=== PATIENT | female | born 1995 | race Caucasian/White ===

== ENCOUNTER 2020-08-20 05:51 | Inpatient (IN) | payer OTHER ==
[2020-08-20] VITALS (21 sets, daily range): BP systolic 81–140; BP diastolic 44–73
[~2020-08-20] VITALS: Ht 162.6 cm; Wt 90.7 kg
[2020-08-20] MEDS ORDERED: BUTORPHANOL 2 MG/ML INJ (J0595) IV ONE (08:00)
[2020-08-20] MEDS ORDERED: PROMETHAZINE INJ 25 MG/ML VIAL (J2550) IV PRN (08:00)
--- NOTE | 2020-08-20 08:08 | HPEPDOC ---
Obstetrical History & Physical General Date of Admission Aug 20, 2020 at 07:01 History of Present Illness 25yo G1at 40w4d presents with painful contraction. Reports active feal movement. No vaginal bleeding or LOF. Chief Complaint: Contractions, term Information Provided By: Patient Age: 25 : 1 Care Care: Good Care Dating Final EDC: Aug 16, 2020 Final EDC by: LMP, 1st trimester (US) EGA at Admission: 40 Past Medical History Past Obstetrical History : Past Obstetrical History: [employer] History: No pertinent history Past Medical History Surgical History: Dysart teeth Family History Significant Family History: No pertinent family hx Social History Marital Status: Family situation: Spouse/partner home Psychosocial History: No pertinent psych hx * Smoker: non-smoker Alcohol: Denies Drugs: denies Allergies Coded Allergies: No Known Allergies (Unverified , 08/20/20) Physical Examination Physical Examination GENERAL: Alert and oriented times three. BREAST: . ABDOMEN: Gravid and non-tender to touch. FETUS: Is vertex (VTX) by sterile vaginal examination (SVE), fetus is vertex (VTX) by Genaro. HEART RATE: Regular rate and rhythm. LUNGS: Clear to auscultation (CTA). . Vital Signs/I&O Vital Signs Date Time Temp Pulse Resp B/P (MAP) Pulse Ox O2 Delivery O2 Flow Rate FiO2 08/20/20 06:20 98.0 91 18 140/73 (95) Laboratory Data 24H LABS Laboratory Tests 2 08/20/20 07:07: Serology Scanned Report Hepatitis B Testing Pertinent Laboratoy Data Blood Type: O+ RBC Antibody Screen: Negative HIV: Negative Hepatitis B: Negative Rapid Plasma Reagin: Nonreactive Rubella: Immune Chlamydia/Gonorrhea: Negative Group B Streptococcus: Negative Anatomy Ultrasound Ultrasound Date: Apr 26, 2020 Placenta Location: Posterior Normal Anatomy: Yes Placenta Previa: No Vaginal Examination Dilation: 2cm Effacement: 80% Station: -2 Cervical Consistency: Soft Cervical Position: Anterior Presentation: Cephalic presentation Assessment Variability: Moderate Accelerations: Positive Decelerations: None Tocometer Contractions: Yes Frequency: regular, every 2-5 min. Assessment/Plan Assessment 25-year-old 1 at 40 weeks 4 days estimated gestational age in labor Reassuring status Plan Admit and orient. Permastone Applicator and consent. Diet: Regular. Group B Streptococcus (GBS) negative. Labs and intravenous (IV) per unit protocol. Counseled on Pitocin and induction of labor (IOL). Anticipate normal spontaneous delivery (). C-S as appropriate. DAVID GOODWIN MD. Aug 20, 2020 08:08
[2020-08-20 13:33] LABS: HEMATOCRIT 33.6 % (36.0-47.0); HEMOGLOBIN 11.6 g/dl (12.0-15.5); MEAN CORPUSCULAR HEMOGLOBIN 30.5 pg (27.0-33.0); MEAN CORPUSCULAR HGB CONC 34.5 g/dl (32.0-36.5); MEAN CORPUSCULAR VOLUME 88.4 fl (80.0-96.0); PLATELET COUNT, AUTOMATED 262 10^3/uL (150-450); WHITE BLOOD COUNT 10.6 10^3/uL (4.0-10.0)
[2020-08-20 14:05] LABS: ALT/SGPT 22 U/L (12-78); BILIRUBIN,TOTAL 0.3 MG/DL (0.2-1.0); CREATININE FOR GFR 0.71 MG/DL (0.55-1.30); GLOMERULAR FILTRATION RATE > 60.0 (>60); LDH LACTATE DEHYDROGENASE 179 U/L (84-246)
[2020-08-20] MEDS ORDERED: OXYTOCIN 30 UNITS IN 0.9% NaCl 500ML IV BAG (J2590) As Ordered ONE (14:46)
[2020-08-20] MEDS ORDERED: LR 1,000 ML IV SCH (14:53)
[2020-08-20] MEDS ORDERED: OXYTOCIN DRIP 30 UNITS in IV 1 EA IV SCH (15:00)
[2020-08-20] MEDS ORDERED: FENTANYL 2MCG/ML ROPIVACAINE 0.2% IN 0.9% NACL 100ML IVBAG As Ordered ONE (17:44)
[2020-08-20] MEDS ORDERED: ePHEDrine SULFATE 25 MG/5 ML(5MG/ML) SYRINGE IV PRN (19:00)
[2020-08-20] MEDS ORDERED: REFRIGERATOR IV KEYS XX PRN (19:00)
[2020-08-20] MEDS ORDERED: EPIDURAL/PCA KEYS XX PRN (19:00)
[2020-08-20] MEDS ORDERED: LACTATED RINGER'S 1000 ML IV PRN (19:00)
[2020-08-20] MEDS ORDERED: NALOXONE INJ 0.4MG/1ML VIAL (J2310 PER 1MG) IV PRN (19:00)
[2020-08-20] MEDS ORDERED: ONDANSETRON 4MG/2ML VIAL IV PRN (19:00)
[2020-08-20] MEDS ORDERED: EPIDURAL COMMENT XX SCH (19:00)
[2020-08-20] MEDS ORDERED: FENTANYL/ROPIVACAINE/NACL BAG 100 ML EPIDURAL SCH (19:00)
[2020-08-20] MEDS ORDERED: diphenhydrAMINE 50MG/ML VIAL (J1200) IV PRN (19:00)
[2020-08-21] VITALS (12 sets, daily range): BP systolic 99–127; BP diastolic 53–66
--- NOTE | 2020-08-21 02:21 | DNPDOC ---
[facility] Delivery Note Delivery Note DATE OF DELIVERY: 08/21/2020 TIME OF : 0201 GENDER: Male. APGARS:9 and 9. WEIGHT:, 4150 grams or 9 pounds 2 ounces. LACERATIONS: 1MLL ANESTHESIA: epidural. ESTIMATED BLOOD LOSS: 400ml COUNTS: 5 laparotomy sponges accounted for prior to and after delivery and 1 sharps removed from delivery field. DELIVERY NOTE: On 08/21/2020 at 0201, Mrs. Berumen a 25-year-old 1 now para 1, had a spontaneous vaginal delivery of viable male infant, Apgars, 9 and 9 and weight 4150 g or 9 lbs. 2 oz. Head was delivered occiput anterior (OA) with right compound, followed by delivery of the shoulders and corpus. Infant was handed to mom with a good cry. Cord was clamped times two and was cut by the father of baby under my direction. Placenta was then drained and delivered grossly intact. A premixed bag of 500 mL of normal saline with 30 units of Pitocin was then bolused along with uterine massage until the uterus was firm. On inspection, there was a 1MLL that was repaired with 3-0 Vicryl. On reinspection cervix, vagina, perineum was grossly intact and hemostatic. Mom and baby in recovery on stable condition. The couples decided to remain in [facility]. DAVID GOODWIN MD. Aug 21, 2020 02:21
[2020-08-21] MEDS ORDERED: OXYTOCIN DRIP 30 UNITS in IV 1 EA IV SCH (02:22)
[2020-08-21] MEDS ORDERED: RHOGAM 300 MCG (1500 IU) INJ (J2790) IM SCH (02:30)
[2020-08-21] MEDS ORDERED: METHYLERGONOVINE MALEATE 0.2 MG TAB PO PRN (02:30)
[2020-08-21] MEDS ORDERED: ANUSOL HC CREAM 30GM TOP PRN (02:30)
[2020-08-21] MEDS ORDERED: IBUPROFEN 600MG TAB PO PRN (02:30)
[2020-08-21] MEDS ORDERED: ACETAMINOPHEN TAB 650MG DOSE (2X325MG) PO PRN (02:30)
[2020-08-21] MEDS ORDERED: ACETAMINOPHEN 500 MG TAB PO PRN (02:30)
[2020-08-21] MEDS ORDERED: MOM 30ML SUSPENSION UDC PO PRN (02:30)
[2020-08-21] MEDS ORDERED: DIBUCAINE 1% OINTMENT 30GM TOP PRN (02:30)
[2020-08-21] MEDS ORDERED: MEASLES,MUMPS,RUBELLA VACCINE INJ (MMR-II) (90707) SC SCH (02:30)
[2020-08-21] MEDS ORDERED: DOCUSATE SODIUM 100 MG CAP PO PRN (02:30)
[2020-08-21] MEDS: IBUPROFEN 800 MG TAB PO PRN ×2 (02:34→17:27)
[2020-08-21] MEDS: PRENATAL VITAMINS CHEWABLE TABLET PO SCH (09:00)
[2020-08-22 06:00] VITALS: BP 112/61
--- NOTE | 2020-08-22 08:26 | IPNPDOC ---
Progress Note Date of Service: Aug 22, 2020 Day#: 1 Progress Note SUBJECT: Almita is a 25yo G1 now P1001 s/p uncomplicated spontaneous vaginal de livery at 40+5 weeks' at approximately 0201 hours on [id number] of a Male 9 pounds 2 ounces (4150 grams) with 1st degree MLL with repair, doing well day #1. She has been ambulating, voiding spontaneously without issue and tolerating regular diet. Breast feeding without issue. 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 OBJECTIVE: VITAL SIGNS: Within normal limits, afebrile. Alert and oriented times three. Observed normal, nonlabored breathing. Abdomen: Fundus firm at U12. Soft, NTTP. Minimal lochia. Bilateral pedal edema. ASSESSMENT: PP Day #1, normal involution, stable and progressing well. without concern at this time. Vitals within normal limits, afebrile, hemodynamically stable with no evidence of infection. PLAN: 1. Discharge to home tomorrow on PP Day #2. 2. Tylenol and Motrin for pain. 3. Encourage breast feeding and ambulation. 4. Routine PP care. VS, I&O, 24H, Fishbone Vital Signs/I&O Vital Signs Date Time Temp Pulse Resp B/P (MAP) Pulse Ox O2 Delivery O2 Flow Rate FiO2 08/22/20 06:00 98.5 84 16 112/61 (78) 08/21/20 18:00 95 Room Air AREN LÓPEZ CNM Aug 22, 2020 08:26
[2020-08-22] MEDS: PRENATAL VITAMINS CHEWABLE TABLET PO SCH (08:30)
[2020-08-22] MEDS ORDERED: INFLUENZA QUADRIVALENT PF VACCINE 0.5ML SYRINGE IM ONE (09:00)
[2020-08-22 18:00] VITALS: BP 113/56
[2020-08-23 06:00] VITALS: BP 123/70
--- NOTE | 2020-08-23 06:43 | IPNPDOC ---
Progress Note Date of Service: Aug 23, 2020 Day#: 2 Progress Note SUBJECT: Almita is a 25yo G1 now P1001 s/p uncomplicated spontaneous vaginal de livery at 40+5 weeks' at approximately 0201 hours on [id number] of a Male 9 pounds 2 ounces (4150 grams) with 1st degree MLL with repair, doing well day #2. She has been ambulating, voiding spontaneously without issue and tolerating regular diet. Breast feeding without issue. 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 OBJECTIVE: VITAL SIGNS: Within normal limits, afebrile. Alert and oriented times three. Observed normal, nonlabored breathing. Abdomen: Fundus firm at U-2. Soft, NTTP. Minimal lochia. Bilateral pedal edema. ASSESSMENT: PP Day #2, normal involution, stable and progressing well. without concern at this time. Vitals within normal limits, afebrile, hemodynamically stable with no evidence of infection. PLAN: 1. Discharge to home today 2. Tylenol and Motrin for pain. 3. Encourage breast feeding and ambulation. 4. Routine PP care. 5. BC: condoms VS, I&O, 24H, Fishbone Vital Signs/I&O Vital Signs Date Time Temp Pulse Resp B/P (MAP) Pulse Ox O2 Delivery O2 Flow Rate FiO2 08/23/20 06:00 98.1 90 17 123/70 (87) 99 Room Air ILYA ERICKSON DO Aug 23, 2020 06:43
[2020-08-23] MEDS: PRENATAL VITAMINS CHEWABLE TABLET PO SCH (07:32)
--- NOTE | 2020-08-29 14:25 | IPN ---
DATE: 08/21/2020 This patient requested circumcision of her male . After discussing risks and benefits of circumcision, the medical and nonmedical indications, the penile block, and aftercare, expressed understanding of penile jagjit, aftercare, and bleeding, signed the consent form. All questions were answered. A 20-minute discussion. We await the clearance by the pole climber. MARY
== END 2020-08-23 11:45 | disposition home or self-care (01) | DRG 807 ==
LOC: M LDO 05:51 → M LDI 07:01 → M OBS 08-21 04:32
PROVIDERS: ADMIT Obstetrics & Gynecology; ATTEND Obstetrics & Gynecology
PROC: 10E0XZZ Delivery of Products of Conception, External Approach (ICD-10-PCS; principal; 2020-08-21)
PROC: 0HQ9XZZ Repair Perineum Skin, External Approach (ICD-10-PCS; 2020-08-21)
DX: O48.0 Post-term pregnancy (principal); Z37.0 Single live birth; Z3A.40 40 weeks gestation of pregnancy; O32.6XX0 Maternal care for compound presentation, not applicable or unspecified; O70.0 First degree perineal laceration during delivery

== ENCOUNTER → 2021-07-22 | Outpatient (CLI) | payer OTHER ==
[2021-07-22 15:35] LABS: HEMATOCRIT 38.9 % (36.0-47.0); HEMOGLOBIN 12.8 g/dl (12.0-15.5); MEAN CORPUSCULAR HEMOGLOBIN 29.4 pg (27.0-33.0); MEAN CORPUSCULAR HGB CONC 32.9 g/dl (32.0-36.5); MEAN CORPUSCULAR VOLUME 89.2 fl (80.0-96.0); PLATELET COUNT, AUTOMATED 319 10^3/uL (150-450); RED BLOOD COUNT 4.36 10^6/uL (4.00-5.40); WHITE BLOOD COUNT 10.9 10^3/uL (4.0-10.0)
[2021-07-22 17:09] LABS: GC DNA AMPLIFICATION NEGATIVE (NEGATIVE)
[2021-07-22 17:15] LABS: HEPATITIS C VIRUS ABY INDEX < 0.0 INDEX (<0.8); HIV 1&2 SCREEN CENTAUR NEGATIVE (NEGATIVE)
== END ==
LOC: M PLALAB 13:55
PROVIDERS: ATTEND Advanced Practice Midwife
DX: Z34.81 Encounter for supervision of other normal pregnancy, first trimester (principal); Z36.89 Encounter for other specified antenatal screening

== ENCOUNTER → 2021-10-05 | Outpatient (CLI) | payer OTHER ==
--- NOTE | 2021-10-05 14:48 | REP ---
INDICATION: ANATOMY. COMPARISON: None. TECHNIQUE: Transabdominal scanning per our 2nd trimester anatomy screen protocol. She has known dates with EDC of 02/19/2022 or 20 weeks 3 days today. FINDINGS: Scanning demonstrates a viable single intrauterine gestation in a cephalic lie. motion is observed and heart rate is recorded at 165 beats per minute. An anterior, grade zero placenta is seen without evidence of previa. The cord insertion appears to be mid placenta. Amniotic fluid is subjectively normal. Closed cervical length is measured at 3.6 cm transabdominally. No extrauterine abnormality is observed. There has been appropriate interval growth. No anomaly is seen. The following anatomic structures are identified and felt to be sonographically unremarkable: cranium, choroid plexus, cavum, cerebellum and posterior fossa, face and profile, lungs, four-chamber heart with left and right ventricular outflow tract views, diaphragm, left-sided stomach, abdominal wall cord insertion, three-vessel umbilical cord, kidneys and bladder, spine, and upper and lower extremities. Biometry chart: BPD 4.7 cm; 20 weeks 1 days Head circumference 17.7 cm; 20 weeks 1 days Abdominal circumference 15.9 cm; 21 weeks 0 days Femur length 3.5 cm; 20 weeks 6 days Humeral length 3.1 cm; 20 weeks 3 days HC/AC ratio normal 1.12 Cephalic index normal 0.73 Estimated weight 380 grams, 0 pounds 13 ounces, 68th percentile for 20 weeks 3 days. IMPRESSION: Viable single intrauterine gestation at 20 weeks 4 days by today's composite sonographic criteria. Expected gestational age estimate based on provided dates is 20 weeks is 3 days. TALISHA by prior sonography 02/19/2022. No anomaly. <Electronically signed by Evgeny Gomez > 10/05/21 [id number]
== END ==
LOC: M WHC 12:18
PROVIDERS: ATTEND Specialist
DX: Z34.82 Encounter for supervision of other normal pregnancy, second trimester (principal); Z36.89 Encounter for other specified antenatal screening; Z3A.20 20 weeks gestation of pregnancy

== ENCOUNTER → 2021-11-16 | Outpatient (CLI) | payer OTHER ==
[2021-11-16 12:00] LABS: MEAN CORPUSCULAR HEMOGLOBIN 29.6 pg (27.0-33.0); MEAN CORPUSCULAR HGB CONC 32.4 g/dl (32.0-36.5); MEAN CORPUSCULAR VOLUME 91.6 fl (80.0-96.0); PLATELET COUNT, AUTOMATED 260 10^3/uL (150-450); RED BLOOD COUNT 3.71 10^6/uL (4.00-5.40); WHITE BLOOD COUNT 10.4 10^3/uL (4.0-10.0)
== END ==
LOC: M PLALAB 08:56
PROVIDERS: ATTEND Specialist
DX: Z34.82 Encounter for supervision of other normal pregnancy, second trimester (principal); Z36.89 Encounter for other specified antenatal screening

== ENCOUNTER → 2022-01-19 | Outpatient (REF) | payer OTHER | LOC: M PLALAB 08:11 | PROVIDERS: ATTEND Specialist | DX: Z34.83 Encounter for supervision of other normal pregnancy, third trimester (principal); Z36.89 Encounter for other specified antenatal screening; Z3A.35 35 weeks gestation of pregnancy | CPT/HCPCS: 87081; G0463 ==

== ENCOUNTER → 2022-02-02 | Outpatient (CLI) | payer OTHER | LOC: M WHC 14:19 | PROVIDERS: ATTEND Obstetrics & Gynecology | DX: Z36.89 Encounter for other specified antenatal screening (principal); Z3A.37 37 weeks gestation of pregnancy; O26.86 Pruritic urticarial papules and plaques of pregnancy (PUPPP) | CPT/HCPCS: 76816; 76820; G0463 ==